=== PATIENT | male | born 1975 | race Two or more races ===

== ENCOUNTER 2024-10-29 07:15 | Day surgery (SDC) | payer MEDICAID, SELFPAY ==
--- NOTE | 2024-10-23 06:12 | EKG_ITS ---
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
[2024-10-23 09:13] VITALS: BMI 46.0
[2024-10-23 11:48] LABS: Basophils # (Auto) 0.1 Thou/mm3 (0.0-0.2); Basophils % (Auto) 1 % (0-2.5); Eosinophils # (Auto) 0.1 Thou/mm3 (0.0-0.5); Eosinophils % (Auto) 1 % (0-10); Hematocrit 44.5 % (41.0-53.0); Immature Granulocytes % (Auto) 1 % (0-0); Immature Granulocytes Auto 0.04 Thou/mm3 (0.00-0.00); Lymphocytes % (Auto) 37 % (10-50); Mean Corpuscular HGB Conc 33.7 g/dl (31.0-37.0); Mean Corpuscular Hemoglobin 32.2 pg (25.0-35.0); Mean Corpuscular Volume 96 fL (80-100); Monocytes # (Auto) 0.6 Thou/mm3 (0.0-0.8); Monocytes % (Auto) 7 % (0-12); Neutrophils # (Auto) 4.4 Thou/mm3 (1.8-7.7); Neutrophils % (Auto) 54 % (37-80); Nucleated Red Blood Cell % 0 /100 WBC (0); Platelet Count 198 Thou/mm3 (140-440); RDW Standard Deviation 45.6 fL (35.1-43.9); Red Blood Count 4.66 Miln/mm3 (4.50-5.90); White Blood Count 8.1 Thou/mm3 (3.8-10.6)
[2024-10-23 11:55] LABS: INR 0.9 (0.9-1.3); Prothrombin Time 10.4 Seconds (9.0-12.2)
[2024-10-23 12:04] LABS: Alanine Aminotransferase 24 U/L (10-49); Albumin/Globulin Ratio 1.9 (1.2-2.2); Alkaline Phosphatase 91 U/L (46-116); Anion Gap 4 (7-16); BUN/Creatinine Ratio 14 Ratio (12-20); Bilirubin,Total 0.5 mg/dL (0.3-1.2); Blood Urea Nitrogen 13 mg/dL (9-23); Calcium 9.6 mg/dL (8.3-10.6); Calcium (Corrected) 9.6 mg/dL (8.5-10.1); Carbon Dioxide 27.8 mMol/L (20.0-31.0); Chloride 107 mMol/L (98-107); Creatinine (Component) 0.9 mg/dL (0.6-1.3); Estimated Creatinine Clearance 133.5 mL/min (>60); Globulin 2.7 gm/dL (2.3-3.5); Glucose 95 mg/dL (74-106); Osmolality,Calculated 277 (275-295); Potassium 3.9 mMol/L (3.4-5.1); Sodium 139 mMol/L (136-145); Total Protein 7.7 gm/dL (5.7-8.2); eGFR > 60 See Note
[2024-10-23 12:14] LABS: Aspartate Amino Transferase 16 U/L (0-34)
[2024-10-29] VITALS (9 sets, daily range): BP systolic 120–137; BP diastolic 80–95; PULSE 72–86; RESP 14–20; TEMP 36.2–36.4; O2SAT 96–100; BMI 45.3
--- NOTE | 2024-10-29 11:06 | ESOP_ITS ---
Date of Procedure 10/29/24 Pre Op Diagnosis Symptomatic varicose veins left lower extremity Post Op Diagnosis Same as preop diagnosis Procedure Radiofrequency endovenous ablation of the greater saphenous vein left lower extremity with varicose vein excisions through 26 separate incisions Findings The greater saphenous vein was successfully ablated with no thrombus seen in the saphenofemoral junction or common femoral vein All marked varicose veins were successfully disrupted or removed Procedure Description With the patient standing in the preop area all varicose veins to be removed were carefully marked with a sharpie pen. The patient was brought to the operating room and general anesthesia was established. The left lower extremities and sterilely prepped and draped. A timeout was performed. The vein ablation procedure was performed first by mapping out the course of the greater saphenous vein between the knee and the saphenofemoral junction on the medial thigh. Using ultrasound the saphenous vein was accessed with a 21-gauge mini stick needle followed by mini stick wire then a 4 Sammarinese sheath and a 7 Sammarinese sheath introducer. The ablation catheter was then brought to the field prepped and placed into the patient with the tip carefully positioned 3 to 5 cm distal to the saphenofemoral junction. Tumescent anesthesia was then instilled along the treatment length of the vein. Catheter tip position was then assured to be 3 to 5 cm from the saphenofemoral junction then under direct ultrasound compression the catheter was activated with 2 cycles proximally then for additional cycles down the leg. The saphenofemoral junction was then inspected and found to be compressible with good augmentation and flow and no evidence of clot in either the saphenofemoral junction or common femoral vein. The catheter was removed and pressure was held until hemostasis was obtained. The varicose veins were then removed next by making small skin nicks at the marked areas then bluntly enlarging them with a mosquito clamp and sequentially excising or disrupting the veins. 26 incisions were made during the procedure. After all the veins were treated hemostasis was obtained and the leg was washed and Steri-Strips were applied to reapproximate the incision edges. Leg was then wrapped with sterile gauze Kerlix and Arnaud wrap. The patient woke up from anesthesia was moved to recovery in stable condition Anesthesia other (Laryngeal mask anesthesia) Pathology / specimen Other (Left leg varicose veins) Estimated Blood Loss 100 Condition Stable Disposition PACU Surgeon Jacob Barnett MD Surgical Staff Operation Date: 10/29/24 09:30 Case Staff Anesthesiologist: Lucas Srinivasan RN First Assistant: Mary Crews
--- NOTE | 2024-10-29 11:20 | SUR.PHASEI ---
1120 Patient arrived to recovery [facility], drowsy and talking with staff, breathing unlabored, vital signs stable, denies pain, dressing intact to left leg; steri-strips, abd, kerlix roll, nieves wraps, no bleeding noted, bilateral dosalis pedis pulses present when palpated, patient has good circulation to left lower extremity; skin color normal for patient and warm to touch, lung sounds clear upon auscultation, report received from Constantin RAMEY and Dr. Srinivasan
--- NOTE | 2024-10-29 13:05 | SUR.PHASEII ---
1245 Patient getting dressed to go home, patient began bleeding from dressing, patient assisted back in bed, dressing unwrapped, pressure applied, patient laying down in bed with leg elevated, patient not actively bleeding, Dr. Barnett notified and gave orders to re-wrap patient dressing with abd, kerlix roll, coban and nieves wraps 1305 Patient surgical site redressed, patient tolerated well, no bleeding noted, will proceed with discharge
--- NOTE | 2024-10-29 13:14 | SUR.PHASEII ---
1314 Patient meets discharge criteria from recovery, awake and alert, breathing unlabored, vital signs stable, denies pain, dressing intact; no bleeding noted, patient drinking 7up tolerating well; denies nausea, patient assisted with dressing into his clothing by his , discharge instructions given to patient and patients with the assistance of the telephone japanese interpreter Alecia ID#[id number], patient signed discharge instructions. Patient given all her belongings prior to discharge, transported via wheelchair and left in a private vehicle.
== END 2024-10-29 13:14 | disposition home or self-care (01) ==
PROVIDERS: Anesthesiology; PCP Nurse Practitioner Family; Referring Provider Surgery Vascular Surgery; Visit Provider Surgery Vascular Surgery
PROC: (CPT 36475; principal; 2024-10-29 09:15)
DX: I83.812 Varicose veins of left lower extremity with pain (principal)
CPT/HCPCS: 36475; 37766; 36415; 80053; 85025; 85610; 85730; 93005; A4217; A4649; C1888; C1894; J0690; J1885; J2250; J2405; J2704; J2765; J3010; J7050

== ENCOUNTER 2025-10-25 08:44 | Emergency (ER) | payer MEDICAID, SELFPAY ==
[2025-10-25 08:56] VITALS: BP 121/80; PULSE 88; RESP 20; TEMP 36.7; O2SAT 99; BMI 37.0
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
--- NOTE | 2025-10-25 09:01 | PD.EDABDPN ---
ED Abdominal Pain RME/HPI General Chief Complaint: Abdominal Pain Stated complaint: ABD PAIN, GROIN PAIN Time seen by provider: 10/25/25 08:59 Arrival date/time: 10/25/25 08:44 50-year-old male with a history of type 2 diabetes, hyperlipidemia, presents to the emergency room with a chief complaint of bilateral lower abdominal pain that radiates to the rectum x 3 days Source: patient Mode of arrival: ambulatory Limitations: no limitations Related Data Home Medications ?Medication ?Instructions ?Recorded ?Confirmed atorvastatin 40 mg tablet 40 mg PO DAILY 10/23/24 10/23/24 metformin 1,000 mg tablet 1,000 mg PO DAILY 10/23/24 10/23/24 semaglutide 2 mg/dose (8 mg/3 mL) 2 mg subcut QWEEK 10/23/24 10/23/24 subcutaneous pen injector (Ozempic) Allergies Allergy/AdvReac Type Severity Reaction Status Date / Time No Known Allergies Allergy Verified 10/25/25 08:50 Review of Systems Review of Systems Systems Reviewed: All systems reviewed, normal except as documented Constitutional Constitutional: Reports system reviewed and no additional complaints, except as documented, Denies fatigue, Denies fever(s), Denies headache(s) and Denies weakness Eyes Eyes: Reports system reviewed and no additional complaints, except as documented, Denies blurry vision and Denies change in vision ENT Ears, Nose, Mouth, and Throat: Reports system reviewed and no additional complaints, except as documented, Denies otalgia, Denies headache(s), Denies nasal congestion, Denies throat swelling and Denies vertigo Cardiovascular Cardiovascular: Reports system reviewed and no additional complaints, except as documented, Denies chest pain, Denies dyspnea and Denies dyspnea on exertion Respiratory Respiratory: Reports system reviewed and no additional complaints, except as documented, Denies chest congestion, Denies cough, Denies dyspnea, Denies dyspnea on exertion and Denies wheezing Gastrointestinal Gastrointestinal: Reports system reviewed and no additional complaints, except as documented, Reports abdominal pain, Reports cramping, Denies nausea and Denies vomiting Genitourinary Genitourinary: Reports system reviewed and no additional complaints, except as documented, Denies dysuria, Reports genital pain, Denies hematuria, Denies scrotal swelling, Denies testicular mass and Reports testicular pain Musculoskeletal Musculoskeletal: Reports system reviewed and no additional complaints, except as documented and Denies back pain Integumentary/Breasts Skin/Breast: Reports system reviewed and no additional complaints, except as documented and Denies wounds Neurologic Neurologic: Reports system reviewed and no additional complaints, except as documented, Denies confusion, Denies headache(s), Denies lack of coordination, Denies vertigo and Denies weakness Psychiatric Psychiatric: Reports system reviewed and no additional complaints, except as documented, Denies anxiety, Denies confusion, Denies depression, Denies paranoia, Denies suicidal ideation and Denies tactile hallucinations Endocrine Endocrine: Reports system reviewed and no additional complaints, except as documented and Denies fatigue Hematologic/Lymphatic Hematologic/Lymphatic: Reports system reviewed and no additional complaints, except as documented and Denies lymphadenopathy Allergic/Immunologic Allergic/Immunologic: Reports system reviewed and no additional complaints, except as documented, Denies throat swelling, Denies urticaria and Denies wheezing ED Exam General Limitations: Present no limitations Course Quality Measures none Orders Category Date Time Status CT abdomen pelvis wo con Stat Exams 10/25/25 09:01 Ordered CBC Stat Lab 10/25/25 09:01 Ordered CMP [Comprehensive Metabolic Panel] Stat Lab 10/25/25 09:01 Ordered Lipase Stat Lab 10/25/25 09:01 Ordered UA [Urinalysis] Stat Lab 10/25/25 09:01 Ordered Urine Culture Stat Lab 10/25/25 09:01 Ordered Vital Signs Vital signs: Vital Signs Temperature 98.0 F 10/25/25 08:56 Pulse Rate 88 10/25/25 08:56 Respiratory Rate 20 10/25/25 08:56 Blood Pressure 121/80 10/25/25 08:56 Pulse Oximetry (%) 99 10/25/25 08:56 Oxygen Delivery Method Room Air 10/25/25 08:56 Abdominal Pain MDM MDM Narrative MDM Narrative:: 50-year-old male with a history of type 2 diabetes, hyperlipidemia, presents to the emergency room with a chief complaint of bilateral lower abdominal pain that radiates to the rectum x 3 days Patient data External records reviewed:: [facility] previous records Clinical information provided by:: patient Social determinants that could affect healthcare access:: none Patient has the following chronic illnesses:: No chronic How is presenting disease/condition affected by chronic disease/condition?: no chronic disease Evaluation data The following diagnostics were reviewed and interpreted by me:: lab results and radiology exam(s) Lab and/or radiology exams considered but not ordered:: Labs and radiology exams considered and ordered Interpretation Summary: CT abdomen and pelvis- Ultrasound testicles- Medications / Prescriptions Medications or Prescriptions considered but not ordered:: No medication given Medication administrations:: No medication given Consultations Consultation(s) initiated? (list below): No Diagnosis Differential diagnosis abdominal pain: abdominal pain and gastroenteritis Admission Indicated Admission indicated?: not indicated Admission Request Was there a request for admission?: No Disposition Plan Disposition Plan: Discharge Discharge Attestation Discharge Attestation: The patient and all family members were given an opportunity to ask questions and understood the discharge instructions. Discharge instructions specifically effects, indications for sooner follow up or return to the emergency department, and the expected course of current diagnosis. Patient condition: Stable Discharge Plan Prescriptions/Referrals Prescriptions/Med Rec: No Action atorvastatin 40 mg tablet 40 mg PO DAILY metformin 1,000 mg tablet 1,000 mg PO DAILY Patient Comments: Pt stated he only takes it if he feels he needs it, when blood sugar is > 200 Ozempic 2 mg/dose (8 mg/3 mL) pen injector 2 mg SUBCUT QWEEK Patient/Caregiver Discharge Instructions Print Language: Belarusian
--- NOTE | 2025-10-25 09:03 | XR_ITS ---
EXAMINATION: Testicular sonography complete TECHNIQUE: Grayscale sonographic images testes, assessment arterial inflow and venous outflow Doppler spectral analysis color flow analysis Date and time: October 25, 2025, 0921 hours. INDICATIONS: Testicular pain beginning 3 days ago. FINDINGS: Right testis 4.1 cm epididymis 11 mm Arterial flow to the testicle. No testicular mass. 4 mm epididymal cyst Moderate varicocele Mild hydrocele Left testis 4.3 cm epididymis 11 mm Left epididymal cyst 18 mm Arterial flow the testicle. No testicular mass Mild hydrocele IMPRESSION: No testicular torsion or testicular mass Bilateral benign epididymal cyst Moderate right varicocele
[2025-10-25 10:32] LABS: Basophils # (Auto) 0.0 Thou/mm3 (0.0-0.2); Basophils % (Auto) 0 % (0-2.5); Eosinophils # (Auto) 0.1 Thou/mm3 (0.0-0.5); Eosinophils % (Auto) 1 % (0-10); Hematocrit 42.2 % (41.0-53.0); Hemoglobin 14.1 g/dL (13.5-16.0); Immature Granulocytes Auto 0.01 Thou/mm3 (0.00-0.00); Lymphocytes # (Auto) 1.9 Thou/mm3 (1.0-4.8); Lymphocytes % (Auto) 23 % (10-50); Mean Corpuscular HGB Conc 33.4 g/dl (31.0-37.0); Mean Corpuscular Hemoglobin 32.6 pg (25.0-35.0); Mean Corpuscular Volume 98 fL (80-100); Monocytes # (Auto) 0.7 Thou/mm3 (0.0-0.8); Monocytes % (Auto) 8 % (0-12); Neutrophils # (Auto) 5.7 Thou/mm3 (1.8-7.7); Neutrophils % (Auto) 68 % (37-80); Nucleated Red Blood Cell # 0.00 Thou/mm3 (0.00-0.00); Nucleated Red Blood Cell % 0 /100 WBC (0); Platelet Count 183 Thou/mm3 (140-440); RDW Standard Deviation 46.1 fL (35.1-43.9); Red Blood Count 4.33 Miln/mm3 (4.50-5.90); White Blood Count 8.4 Thou/mm3 (3.8-10.6)
--- NOTE | 2025-10-25 10:37 | PD.EDRME ---
Rapid Medical Screening Exam RME Arrival date/time: 10/25/25 08:44 50-year-old male with a history of type 2 diabetes, hyperlipidemia, presents to the emergency room with a chief complaint of bilateral lower abdominal pain that radiates to the rectum x 3 days I have greeted and performed a focused initial assessment of this patient. A comprehensive ED assessment and evaluation of the patient, analysis of all test results, and completion of the medical decision making process will be conducted by additional ED providers. Chief Complaint: Abdominal Pain Time Seen by Provider: 10/25/25 08:59 Vital signs: Vital Signs Temperature 98.0 F 10/25/25 08:56 Pulse Rate 88 10/25/25 08:56 Respiratory Rate 20 10/25/25 08:56 Blood Pressure 121/80 10/25/25 08:56 Pulse Oximetry (%) 99 10/25/25 08:56 Oxygen Delivery Method Room Air 10/25/25 08:56 Vital signs reviewed by provider: Yes Exam: Bilateral lower abdominal cramping Rectal and testicular pain Clinical Impression: Gastroenteritis/UTI
[2025-10-25 10:57] LABS: Alanine Aminotransferase 22 U/L (10-49); Albumin, Serum 4.6 gm/dL (3.5-5.0); Albumin/Globulin Ratio 1.6 (1.2-2.2); Alkaline Phosphatase 73 U/L (46-116); Anion Gap 9 (7-16); Aspartate Amino Transferase 22 U/L (0-34); BUN/Creatinine Ratio 17 Ratio (12-20); Bilirubin,Total 0.5 mg/dL (0.3-1.2); Blood Urea Nitrogen 12 mg/dL (9-23); Calcium 9.4 mg/dL (8.3-10.6); Calcium (Corrected) 9.4 mg/dL (8.5-10.1); Carbon Dioxide 26.5 mMol/L (20.0-31.0); Chloride 109 mMol/L (98-107); Creatinine (Component) 0.7 mg/dL (0.6-1.3); Estimated Creatinine Clearance 165.4 mL/min (>60); Globulin 2.8 gm/dL (2.3-3.5); Glucose 91 mg/dL (74-106); Lipase 41 U/L (12-53); Osmolality,Calculated 286 (275-295); Potassium 4.2 mMol/L (3.4-5.1); Sodium 144 mMol/L (136-145); Total Protein 7.4 gm/dL (5.7-8.2); eGFR > 60 See Note
[2025-10-25 12:05] LABS: Collection Type, Urine Clean Catch
[2025-10-25 12:41] LABS: Bilirubin,Urine Negative (Negative); Blood,Urine Negative (Negative); Clarity,Urine Clear (Clear/Hazy); Color,Urine Yellow (Lt Yel-Yel); Glucose, Urine Negative (Negative); Ketones,Urine Negative (Negative); Leukocyte Esterase,Urine Negative (Negative); Nitrite,Urine Negative (Negative); PH,Urine 6.5 (5.0-7.0); Protein,Urine Negative (Neg - Trace); RBC,Urine 1 /hpf (0-3); Specific Gravity,Urine 1.026 (1.001-1.035); Squamous Epithelial Cell,Urine < 1 /hpf (0-5); Urobilinogen,Urine Negative mg/dL (0.0-1.0); WBC,Urine 2 /hpf (0-5)
--- NOTE | 2025-10-25 15:47 | EDNOTE_ITS ---
<Statement entered by Jane Wilkerson MD - 10/27/25 17:44> I, Jane Wilkerson MD, have reviewed the history, exam, and assessment of the patient. I have evaluated the patient independently and agree with the plan of care documented by [ ]. All diagnostic studies were reviewed and discussed. I confirm the diagnosis as documented by the Resident. I was present during the Medical Decision Making for this patient. The patient's plan of care was created between myself and the Resident and consistent with our discussion of the patient's case. ED General RME/HPI General Chief complaint: Abdominal Pain Stated complaint: ABD PAIN, GROIN PAIN Time Seen by Provider: 10/25/25 08:59 Arrival date/time: 10/25/25 08:44 RME / HPI RME / HPI narrative: 10/25/25 08:44 50-year-old male with a history of type 2 diabetes, hyperlipidemia, presents to the emergency room with a chief complaint of bilateral lower abdominal pain that radiates to the rectum x 3 days I have greeted and performed a focused initial assessment of this patient. A comprehensive ED assessment and evaluation of the patient, analysis of all test results, and completion of the medical decision making process will be conducted by additional ED providers. Exam: Bilateral lower abdominal cramping Rectal and testicular pain Impression: Gastroenteritis/UTI Related Data Home Medications ?Medication ?Instructions ?Recorded ?Confirmed atorvastatin 40 mg tablet 40 mg PO DAILY 10/23/2410/11 metformin 1,000 mg tablet 1,000 mg PO DAILY 10/23/24 1 12/24/23 semaglutide 2 mg/dose (8 mg/3 mL) 2 mg subcut QWEEK 10/23/24 subcutaneous pen injector (Ozempic) Previous Rx's ?Medication ?Instructions ?Recorded hydrocortisone acetate 25 mg 25 mg AL QDAY 2 weeks #12 ea 10/25/25 rectal suppository ibuprofen 800 mg tablet 800 mg PO Q8H PRN pain 1 wee k #21 10/25/25 tabs Allergies Allergy/AdvReac Type Severity Reaction Status Date / Time No Known Allergies Allergy Verified 10/25/25 08:50 ED Exam Narrative Physical exam: Physical Exam: GENERAL: Awake, answering questions appropriately in Icelandic, appears stated age HEENT: NC/AT. Moist mucosa. PERRLA/EOMI. CARDIO: Heart RRR, no obvious murmurs, no JVD. PULM: No coughing or visible SOB. Lungs CTA B/L. GI: Abdomen soft, NT/ND, +BS. Rectal: External hemorrhoids without any anal fissure. SKIN/MSK/EXT: No wounds/discoloration/rashes/edema/amputations. +Pedal pulses present B/L. NEURO: Oriented x3, Moves extremities x4, no focal neurologic deficits noted. Course Quality Measures none Orders Category Date Time Status CT abdomen pelvis wo con Stat Exams 10/25/25 09:01 Completed US testicular Stat Exams 10/25/25 09:03 Completed CBC Stat Lab 10/25/25 10:02 Completed CMP [Comprehensive Metabolic Panel] Stat Lab 10/25/25 10:02 Completed Lipase Stat Lab 10/25/25 10:02 Completed UA [Urinalysis] Stat Lab 10/25/25 11:51 Completed Urine Culture Stat Lab 10/25/25 11:51 Received Ketorolac Inj [Toradol Inj] Med 10/25/25 15:48 Discontinued 30 mg IM X1 ONE Vital Signs Vital signs: Vital Signs Temperature 98.0 F 10/25/25 08:56 Pulse Rate 88 10/25/25 08:56 Respiratory Rate 20 10/25/25 08:56 Blood Pressure 121/80 10/25/25 08:56 Pulse Oximetry (%) 99 10/25/25 08:56 Oxygen Delivery Method Room Air 10/25/25 08:56 Discharge Plan Plan Patient Disposition: Admit Acute Care w/in Hospital Patient condition on transfer: Stable Prescriptions/Referrals Prescriptions/Med Rec: New ibuprofen 800 mg tablet 800 mg PO Q8H PRN (Reason: pain) 7 Days Qty: 21 0RF hydrocortisone acetate 25 mg suppository 25 mg AL QDAY 14 Days Qty: 12 0RF No Action atorvastatin 40 mg tablet 40 mg PO DAILY metformin 1,000 mg tablet 1,000 mg PO DAILY Patient Comments: Pt stated he only takes it if he feels he needs it, when blood sugar is > 200 Ozempic 2 mg/dose (8 mg/3 mL) pen injector 2 mg SUBCUT QWEEK Referrals: Dulce Olmos FNP-C [Primary Care Provider] - In 1 week Problem List Clinical Impression: External hemorrhoid Patient/Caregiver Discharge Instructions Additional Instructions: Utilice ba?os de asiento. Apl?quese un supositorio de hidrocortisona tushar vez al d?a para el dolor rectal. [place] ibuprofeno de 800 mg cada 8 horas seg?n sea necesario para el dolor intenso. Acuda a moya evan de seguimiento con moya m?dico de cabecera el 16 de diciembre. Si elgin s?ntomas empeoran o si presenta fiebre/escalofr?os, dolor en el pecho, dificultad para respirar o sangrado, acuda a la simon de emergencias de inmediato. Print Language: Icelandic Stand Alone Forms: Kate Award Info., Patient Portal Info Letter MDM Narrative MDM hospital course (for use when minimal MDM required): HPI: 50-year-old male with past medical history of type 2 diabetes, hyperlipidemia presenting to the ER on 10/25 with scrotal and rectal pain. Patient states the pain started roughly 2 nights ago and has progressively worsened. He describes the pain as a sharp sensation in his rectal area. He denies any instrumentation, melena, hematochezia or hematemesis. He states that he tapped his abdomen last night which somehow improved the pain that he was having. He also denies having any fever/chills, chest pain, shortness of breath or palpitations. He states he has never experienced such sensation before. Patient's is bedside and corroborated her story. On examination, please refer to the physical exam above; patient presented normotensive, heart rate of 88, respiratory rate of 20, afebrile satting 99 on room air. Pertinent lab findings included CBC without any concerning findings such as leukocytosis or anemia, CMP shows mild hyperchloremia but otherwise unremarkable CMP. Urinalysis is negative for any signs of infection. CT abdomen pelvis shows a small umbilical hernia but otherwise largely unremarkable without any prostatic megaly and testicular ultrasound shows no testicular torsion or mass but there is bilateral benign epididymal cysts and moderate right varicocele Differentials at this time include: External hemorrhoids, prostatitis less likely as UA is unremarkable and patient does not have WBC elevation and there is no mention on CT scan, internal hemorrhoids, proctitis #External hemorrhoids #Varicocele As noted on physical exam and imaging studies including ultrasound of the testicles Plan: Will discharge patient with the following strict instructions Use sitz baths. Insert a hydrocortisone suppository once a day for rectal pain. Take 800 mg of ibuprofen every 8 hours as needed for severe pain. Attend your follow-up appointment with your primary care physician on October 26. If your symptoms worsen or if you experience fever/chills, chest pain, difficulty breathing, or bleeding, go to the emergency room immediately. Patient seen and assessed with attending Dr. Rhea Rios, DO PGY-2 Internal Medicine - GME Medication Administration(s) Medication Administration History Discontinued Medications Ketorolac Tromethamine (Ketorolac Inj 30 Mg/Ml Vial) 30 mg IM X1 ONE Stop: 10/25/25 15:49 Last Admin: 10/25/25 16:02 Dose: 30 mg Documented By: JAIDA
[2025-10-25] MEDS: KETOROLAC INJ 30 MG/ML VIAL IM (16:02)
== END 2025-10-25 19:28 | disposition home or self-care (01) ==
PROVIDERS: Nurse Practitioner Family; Emergency Provider Emergency Medicine; PCP Nurse Practitioner Family
DX: K64.4 Residual hemorrhoidal skin tags (principal); K42.9 Umbilical hernia without obstruction or gangrene; N50.3 Cyst of epididymis; I86.1 Scrotal varices
CPT/HCPCS: 36415; 74176; 76870; 80053; 81001; 83690; 85025; 87086; 96372; 99283; J1885